=== PATIENT | female | born 2000 | race Caucasian/White ===

== ENCOUNTER 2021-09-04 17:25 | Emergency (ER) | payer OTHER, BC, SELFPAY ==
[2021-09-04 17:31] VITALS: BP 123/76; PULSE 76; RESP 18; TEMP 36.2; O2SAT 98; BMI 22.6
--- NOTE | 2021-09-04 18:04 | ED_ITS ---
HPI - General Adult General Chief complaint: Laceration/Wound Stated complaint: CUT ON NOSE - BAT INJURY Time Seen by Provider: 09/04/21 17:26 Source: patient Mode of arrival: ambulatory Limitations: no limitations History of Present Illness HPI narrative: Healthy 21-year-old female coming in today with a laceration to her nose. States she was doing a drill with a baseball bat, the baseball bat ricocheted off of a exercise band and hit her in the nose. She denies headache, blurry vision. She did not lose consciousness. She denies difficulty breathing. Patient states that her tetanus shot was updated last year. Related Data Home Medications Medication Instructions Recorded Confirmed No Known Home Medications 09/04/21 09/04/21 Allergies Allergy/AdvReac Type Severity Reaction Status Date / Time No Known Drug Allergies Allergy Verified 09/04/21 17:30 Review of Systems Status of ROS: Reports: 10 or more systems reviewed and unremarkable except as noted in History and below PFSH PFSH Social History Smoking Status: Never smoker Do you use any of these nicotine containing products: None Second hand tobacco smoke exposure: Yes How often do you have a drink containing alcohol: monthly or less How often do you have six or more drinks on one occasion: Never AUDIT-C Alcohol total score: 1 Non-prescribed substance use: denies use Exam Narrative: Exam Narrative: Well-nourished well-developed patient in no acute distress. Alert and oriented. Answers questions appropriately. Mood and affect are appropriate. Thoughts are goal oriented and rational. No tangential or magical thinking noted. Patient speaks in full sentences without needing to catch their breath. HEENT: Normocephalic. Pupils are equally round reactive to light. Extraocular muscles are intact. Conjunctivae are moist without any icterus noted. Moist mucous membranes. Posterior pharynx is normal. Neck is soft without any lymphadenopathy or thyromegaly. No masses are appreciated. Patient has a small horizontal laceration, approximately 1 cm in length right across the bridge of the nose. There is no significant swelling. There is no crepitus or tenderness to palpation of the nose. There is no septal hematoma noted. There is no bruising around the eyes. Laceration goes through the epidermis and dermis into the subcutaneous tissue, there is no bone visualized. Skin: Well perfused without any obvious rashes. Const: Vital Signs, click to edit/add: Vital Signs - 24 hr 09/04/21 17:31 Temperature 97.1 F L Pulse Rate [Right Pulse Oximeter] 76 Respiratory Rate 18 Blood Pressure [Ri ght Upper Arm] 123/76 Pulse Oximetry 98 Course Vital Signs Vital signs: Initial Vital Signs Temperature 97.1 F L 09/04/21 17:31 Temperature Source Temporal Artery Scan 09/04/21 17:31 Pulse Rate 76 09/04/21 17:31 Respiratory Rate 18 09/04/21 17:31 Blood Pressure 123/76 09/04/21 17:31 Blood Pressure Mean 91 09/04/21 17:31 Blood Pressure Position Supine 09/04/21 17:31 Pulse Oximetry 98 09/04/21 17:31 Oxygen Delivery Method 09/04/21 17:31 Vital Signs Temperature 97.1 F L 09/04/21 17:31 Pulse Rate 76 09/04/21 17:31 Respiratory Rate 18 09/04/21 17:31 Blood Pressure 123/76 09/04/21 17:31 Pulse Oximetry 98 09/04/21 17:31 Temperature 97.1 F L 09/04/21 17:31 Pulse Rate 76 09/04/21 17:31 Respiratory Rate 18 09/04/21 17:31 Blood Pressure 123/76 09/04/21 17:31 Pulse Oximetry 98 09/04/21 17:31 Medical Decision Making MDM Narrative Medical decision making narrative: Laceration to the nose sutured in the ED today. We discussed wound hygiene, signs and symptoms of infection, reasons to return to clinic, suture removal in 5-7 days, scar formation. Patient was agreeable had no other questions. Discharge Plan Discharge Clinical Impression: Laceration Patient Disposition: Home, Self-Care Condition: Improved Additional Instructions: Keep wound clean and dry. Okay to shower like you normally would but do not soak it. Suture removal in 5-7 days with your primary care provider. Watch for signs of infection which include redness or drainage from the laceration. See your doctor right away if this occurs. Scarring will be present, once sutures are removed make sure to use daily sunscreen as this will help with the appearance of the small scar. Prescriptions: No Action No Known Home Medications 0RF Follow Up/Referrals: Beth Levy MD [Primary Care Provider] - Stand Alone Forms: [email or web address] Info Instructions Procedures Laceration Laceration 1: Verification/time out: correct patient and correct site Site: face (Nose) Size (cm): 1 (cm) Description: linear Depth: simple, single layer Local Anesthetic: lidocaine 1% Amount of anesthesia used (mL): 1 (cc) Pre-repair: wound explored and irrigated extensively Skin layer closed with: other (Ethilon) Size (cm): 5-0 Number of sutures: 3 Technique: simple, interrupted Conclusion: patient tolerated procedure
== END 2021-09-04 18:28 | disposition home or self-care (01) ==
LOC: ED 18:15
PROVIDERS: Emergency Provider Family Medicine; PCP Family Medicine
DX: S01.21XA Laceration without foreign body of nose, initial encounter (principal); W20.8XXA Other cause of strike by thrown, projected or falling object, initial encounter; Y93.B9 Activity, other involving muscle strengthening exercises
CPT/HCPCS: 12011; 99282; 99283

== ENCOUNTER 2022-03-12 07:46 | Outpatient (CLI) | payer BC, SELFPAY ==
--- NOTE | 2022-03-12 08:15 | CRLHL7_ITS ---
For Patients: As a result of the Century Cures Act, medical imaging exams and procedure reports are released immediately into your electronic medical record. You may view this report before your referring provider. If you have questions, please contact your health care provider. Indication: Rt hip impingement syndrome Procedure : Informed consent was obtained. The site was marked. Time-out was performed. The skin of the right hip was cleansed with ChloraPrep. A sterile drape was placed. 8 cc of 1 percent lidocaine was administered for superficial anesthesia. Subsequently a 22 gauge spinal needle was introduced into the right hip joint under intermittent fluoroscopic guidance. Injection of 2 cc nonionic Omnipaque 240 contrast confirmed intra-articular location. Subsequently 11 cc of dilute gadolinium were injected. The needle was removed and hemostasis achieved with direct pressure. A dressing was placed. The patient tolerated the procedure well without immediate complication and was immediately sent to MRI for imaging. Total fluoroscopy time 33 seconds. Impression: Successful fluoroscopically guided right hip arthrogram for MRI. Dictated by Nate Morales MD @ 03/12/2022 9:29:32 AM (Electronically Signed)
--- NOTE | 2022-03-12 09:15 | MR_ITS ---
[address] [address] Phone:?[phone] Fax:?[phone] Referring Physician Information: Wesley Edmonds M.D. [address] [facility] [address] Phone:?[phone] Fax:?[phone] Patient:Mayte Fink D.O.B:?2000 Sex:?Female Phone:?[phone] [facility] MRN:?[id number] Exam Date:?03/12/2022 ? EXAM: MR ARTHROGRAM of the RIGHT HIP CLINICAL INFORMATION: Female, 21 years old, with right hip pain. INDICATION: Evaluate for hip impingement. PRIOR SURGERY: None reported. PLAIN FILMS: None available. COMPARISONS: No prior MRIs available. TECHNICAL INFORMATION: Exam performed after injection of gadolinium-based contrast into the right hip joint, reported separately. Using a 1.5T MR scanner: coronals: PD, T2, T1FS sagittals: PD, T2, T1FS axial obliques: PD axials: PDFS coronals of pelvis: T1, STIR SEDATION: None. CONTRAST: No intravenous contrast was administered. FINDINGS: Hip joint: Gadolinium-based contrast distends the hip joint, reflecting successful arthrography. No chondromalacia or focal full-thickness defect of the femoral head or acetabular articular cartilage. No intra-articular bodies. Labrum: Approximately 3.2 cm longitudinal linear tear of base of the anterior through superior labrum (oblique axial series 8 images 12-18; coronal series 4 images 10-14). No paralabral cyst. Proximal femur: No femoral occult fracture, stress injury, marrow edema or osteonecrosis. Loss of normal femoral head/neck junction offset with mild anterosuperior femoral cam morphology. No fibrocystic change. Based on oblique axial series 8 image 15 at approximately 1:30 o'clock anterosuperiorly, the maximum femoral alpha angle measures approximately 68?. Acetabulum: No subchondral cysts, periacetabular ossicles or marrow edema. Version: There appears decreased cranial acetabular anteversion without convincing retroversion. Coverage: Right lateral center edge (CE) angle measures approximately 31? (normal 25?-39?), midline coronal series 6 image 18, corrected for pelvic obliquity. Ligamentum teres: Ligamentum teres is intact and unremarkable. Iliofemoral ligament: The iliofemoral ligament is intact without thickening. Pelvis osseous structures: Sacrum: No stress/insufficiency fractures or marrow edema/pathology. Sacroiliac joints: No demonstrable sacroiliitis. Pubic rami: No stress/insufficiency fractures or marrow edema/pathology. Symphysis pubis: No ongoing osteitis pubis. Myotendinous structures: Gluteus abductors: No convincing insertional tendinopathy or tear of gluteus minimus or medius. Adductors: No demonstrable tendinopathy or strain/tear. Hamstrings: Intact semimembranosus, semitendinosus and biceps femoris tendons, without tendinopathy or tear. Flexors: Intact iliopsoas and rectus femoris, without strain/tear. External rotators: Intact, without demonstrable ischiofemoral impingement. Gluteal aponeurotic fascia and IT band: Unremarkable. Bursae: No demonstrable trochanteric, iliopsoas, or iliopectineal bursitis. Intrapelvic contents: Free fluid: No free fluid seen within the pelvis. Pelvic viscera: No discrete intrapelvic mass is identified. Lymph nodes: No lymphadenopathy by MRI size criteria. Neurovascular structures: No discrete cyst, mass or other compression upon the portions visualized of sciatic or femoral nerves. Lumbar spine:?The visualized portions of the lower lumbar spine are unremarkable. IMPRESSION: 1. Longitudinal linear tearing of the anterior through superior labrum measuring 3.2 cm. No paralabral cyst. 2. Mild anterosuperior femoral cam morphology, which may predispose to femoroacetabular impingement (JES). 3. Decreased acetabular anteversion, which may predispose to a pincer mechanism of JES. However, the right hip volume is normal. 4. No myotendinous abnormality. 5. No full-thickness chondral defect or evidence of hip joint osteoarthritis. 6. No fracture or osseous stress reaction. BC Electronically signed on 03/12/2022 1:03:00 PM by Marty Samson M.D.
== END 2022-03-12 07:47 | disposition home or self-care (01) ==
PROVIDERS: PCP Family Medicine; Visit Provider Family Medicine
DX: M25.551 Pain in right hip (principal); S43.431A Superior glenoid labrum lesion of right shoulder, initial encounter
CPT/HCPCS: 73525; 73722; 77002; A9575; Q9966

== ENCOUNTER 2024-01-14 22:13 | Emergency (ER) | payer BC, SELFPAY ==
[2024-01-14 22:17] VITALS: BP 147/90; PULSE 83; RESP 18; TEMP 36.2; O2SAT 100; BMI 25.8
[2024-01-14 22:44] VITALS: BP 144/80; BP 150/91; BP 152/80; PULSE 101; PULSE 88; PULSE 99
--- NOTE | 2024-01-14 22:49 | ED_ITS ---
HPI - General Adult General Date Seen: 01/14/24 Chief complaint: Weakness Stated complaint: Faint, shaky Time Seen by Provider: 01/14/24 22:23 Source: patient Mode of arrival: ambulatory Limitations: no limitations History of Present Illness HPI narrative: Patient is a 23-year-old young woman, here with mom for evaluation of some weakness and lightheadedness that she has noted over the past couple of weeks. 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 She notes that she probably does not drink as much as she should during her shifts, but she does not find particularly stressful. She will find that when she stands up she feels lightheaded, that her body feels kind of weak. She does think she is eating enough during her shifts. Today she has had a twitching sensation in her anterior chest, no chest pain or tightness. No actual syncope. She has not had abdominal pain, vomiting diarrhea black or bloody stools urinary symptoms. No suspicion of . No fevers or chills. No cough or shortness of breath. She drinks partial energy drinks, she says she never finishes the whole thing. No tobacco or alcohol use. Related Data Home Medications ?Medication ?Instructions ?Recorded ?Confirmed No Known Home Medications 09/04/21 01/14/24 Allergies Allergy/AdvReac Type Severity Reaction Status Date / Time No Known Drug Allergies Allergy Verified 01/14/24 22:20 Review of Systems Status of ROS: Reports: 10 or more systems reviewed and unremarkable except as noted in History and below PFSH PFS Social History Smoking Status: Never smoker Do you use any of these nicotine containing products: None Second hand tobacco smoke exposure: Yes How often do you have a drink containing alcohol: monthly or less How often do you have six or more drinks on one occasion: Never AUDIT-C Alcohol total score: 1 Non-prescribed substance use: denies use Exam Narrative: Exam Narrative: Vital signs reviewed In general, alert, nontoxic young woman. Head: Normocephalic, atraumatic. Eyes: Sclera clear. Pupils equal and reactive. ENT: Mucous membranes moist. Neck: Supple without adenopathy. Heart: Regular rate and rhythm without murmur. Lungs: Clear. No increased work of breathing, crackles or wheezes. Abdomen: Soft, nontender to palpation. Extremities: Well perfused, pulses intact. No significant edema. Neurologic: Alert, conversant. Speech fluent, face symmetric. Moves all ext remities equally. Skin: Warm, dry well perfused. Affect: Normal. Const: Vital Signs, click to edit/add: Vital Signs - 24 hr 01/14/24 22:17 01/14/24 22:44 Temperature 97.2 F L Pulse Rate [Pulse Oximeter] 83 Pulse Rate [orthos tatic lying] 88 Pulse Rate [orthos tatic sitting] 99 Pulse Rate [orthos tatic standing] 101 H Respiratory Rate 18 Blood Pressure [Ri ght Upper Arm] 147/90 H Blood Pressure [or thostatic lying] 150/91 H Blood Pressure [or thostatic sitting] 152/80 H Blood Pressure [or thostatic standing ] 144/80 H Pulse Oximetry 100 Oxygen Delivery Me thod Room Air Documenting provider has reviewed patient's vital signs: yes Course Course ED Course: Following initial evaluation, an EKG was done which by my review shows a normal sinus rhythm, ventricular rate of 84. No acute ST segment changes. Normal HI interval, normal corrected QT. unremarkable T-waves. Orthostatic vital signs show an increase in her pulse from 83-101, blood pressure is stable. She would be interested in trying some IV fluids to see if she feels improved. I checked basic labs, her white blood cell count is 5, hemoglobin is 14.4, fairly unremarkable diff. metabolic panel is normal, potassium is 3.7, calcium 9.8. TSH is pending. Urinalysis is negative, 0-2 red cells 0-2 white cells, no ketones. Blood sugar is normal. Discussed that at this point difficult to know why she might be feeling these symptoms, the fact that it is at the end of 12 hour shift suggest there may be a fatigue component, stress, caffeine, sleep, all of these things may be contributing. However, discussed that she should follow-up with her primary doctor, if things are progressive or new symptoms develop she may need additional evaluation. She says she has an appointment with her doctor tomorrow. Vital Signs Vital signs: Initial Vital Signs Temperature 97.2 F L 01/14/24 22:17 Temperature Source Temporal Artery Scan 01/14/24 22:17 Pulse Rate 83 01/14/24 22:17 Respiratory Rate 18 01/14/24 22:17 Blood Pressure 147/90 H 01/14/24 22:17 Blood Pressure Mean 109 H 01/14/24 22:17 Blood Pressure Position Sitting 01/14/24 22:17 Pulse Oximetry 100 01/14/24 22:17 Oxygen Delivery Method Room Air 01/14/24 22:17 Vital Signs Temperature 97.2 F L 01/14/24 22:17 Pulse Rate 83 01/14/24 22:17 Respiratory Rate 18 01/14/24 22:17 Blood Pressure 147/90 H 01/14/24 22:17 Pulse Oximetry 100 01/14/24 22:17 Oxygen Delivery Method Room Air 01/14/24 22:17 Temperature 97.2 F L 01/14/24 22:17 Pulse Rate 68 01/15/24 00:30 Respiratory Rate 18 01/15/24 00:00 Blood Pressure 111/66 01/15/24 00:30 Pulse Oximetry 95 01/15/24 00:30 Oxygen Delivery Method Room Air 01/15/24 00:30 Medications Administered Medications: Discontinued Medications Generic Name Dose Route Start Last Admin Trade Name Freq PRN Reason Stop Dose Admin Sodium Chloride 1,000 mls @ 1,000 mls/hr 01/14/24 23:00 01/15/24 00:30 0.9 % Sodium Chloride 1000 Ml IV 01/14/24 23:59 Infused .Q1H YENY Infusion Medical Decision Making Lab Data Labs: Lab Results 01/14/24 01/14/24 01/14/24 Range/Units 22:45 22:50 23:33 WBC 5.17 (4.50-11.00) K/uL RBC 4.68 (4.00-5.20) m/uL Hgb 14.4 (12.0-16.0) gm/dL Hct 43.1 (33.0-51.0) % MCV 92 (80-100) fL MCH 31 (26-34) pg MCHC 33 (32-36) gm/dL RDW Coeff of Alejandro 10.7 L (11.5-15.5) % Plt Count 196 (140-440) K/uL Neut % (Auto) 41.7 L (42.0-72.0) % Lymph % (Auto) 46.6 H (20-44) % Warren % (Auto) 10.1 (0.0-11.0) % Eos % (Auto) 1.0 (0.0-7.0) % Baso % (Auto) 0.2 (0.0-3.0) % Neut # (Auto) 2.20 (1.7-7.0) K/uL Lymph # (Auto) 2.40 (0.90-2.90) K/uL Warren # (Auto) 0.50 (0.00-0.90) K/UL Eos # (Auto) 0.05 (0.00-0.50) K/uL Baso # (Auto) 0.01 (0.00-0.30) K/uL Abs Immat Gran (auto) 0.02 (0.00-0.30) K/uL Imm/Tot Granulo (auto) 0.4 % Sodium 138 (135-149) mmol/L Potassium 3.7 (3.6-5.1) mmol/L Chloride 103 (96-114) mmol/L Carbon Dioxide 26 (20-32) mmol/L Anion Gap 9 (7-15) mEq/L BUN 22 (5-24) mg/dL Creatinine 0.6 (0.5-1.5) mg/dL Estimated Creat Clear 137.68 Estimated GFR 130 ml/min Glucose 115 (60-115) mg/dL Calcium 9.8 (8.4-10.6) mg/dL TSH 5.480 H (0.270-4.200) uIU/mL Free T4 1.00 (0.70-1.85) ng/dL Urine Color Yellow (Yellow) Urine Appearance Clear (Clear) Urine pH 7.0 (5.0-8.5) Ur Specific [place] 1.015 (1.000-1.030) Urine Protein Negative (Negative) Urine Glucose (UA) Negative (Negative) Urine Ketones Negative (Negative) Urine Blood Negative (Negative) Urine Nitrite Negative (Negative) Urine Bilirubin Negative (Negative) Urine Urobilinogen 0.2 (0.2-1.0) Ur Leukocyte Esterase Negative (Negative) Urine RBC 0-2 (0-2) Urine WBC 0-2 (0-5) Ur Squamous Epith Cells None (None-Few) Urine Bacteria None (None) Urine HCG, Qual Negative (Negative) Discharge Plan Discharge Clinical Impression: Episodic lightheadedness Patient Disposition: Home, Self-Care Condition: Stable Instructions: Lightheadedness (ED) Additional Instructions: Follow-up with primary care as planned. Return any time for significant worsening, focal weakness, severe pain, etc. Prescriptions: No Action No Known Home Medications Follow Up/Referrals: Beth Levy MD [Primary Care Provider] - Stand Alone Forms: [employer] Info Instructions
[2024-01-14 22:55] LABS: Appearance Urine Clear (Clear); Bilirubin Urine Negative (Negative); Blood Urine Negative (Negative); Color Urine Yellow (Yellow); Glucose Urine Negative (Negative); Ketones Urine Negative (Negative); Leukocyte Esterase Urine Negative (Negative); Nitrite Urine Negative (Negative); Protein Urine Negative (Negative); Specific Gravity Urine 1.015 (1.000-1.030); Urobilinogen Urine 0.2 (0.2-1.0)
[2024-01-14 22:56] LABS: Basophils Absolute Auto 0.01 K/uL (0.00-0.30); Basophils Percent Auto 0.2 % (0.0-3.0); Eosinophils Absolute Auto 0.05 K/uL (0.00-0.50); Hematocrit 43.1 % (33.0-51.0); Hemoglobin* 14.4 gm/dL (12.0-16.0); Immature Granulocytes Abs Auto 0.02 K/uL (0.00-0.30); Immature Granulocytes Pct Auto 0.4 %; Lymphocytes Percent Auto 46.6 % (20-44); Mean Corpuscular HGB Conc 33 gm/dL (32-36); Mean Corpuscular Hemoglobin 31 pg (26-34); Mean Corpuscular Volume 92 fL (80-100); Monocytes Percent Auto 10.1 % (0.0-11.0); Neutrophils Percent Auto 41.7 % (42.0-72.0); Platelet Count* 196 K/uL (140-440); RDW Coefficient of Variation % 10.7 % (11.5-15.5); Red Blood Count 4.68 m/uL (4.00-5.20); White Blood Count* 5.17 K/uL (4.50-11.00)
[2024-01-14 23:01] LABS: RBC Urine 0-2 (0-2); Ur HCG Qualitative* Negative (Negative); WBC Urine 0-2 (0-5)
[2024-01-14 23:02] LABS: Slide Review Reflex No
[2024-01-14 23:06] LABS: Chloride* 103 mmol/L (96-114); Potassium* 3.7 mmol/L (3.6-5.1); Sodium* 138 mmol/L (135-149)
[2024-01-14 23:09] LABS: Anion Gap 9 mEq/L (7-15); Blood Urea Nitrogen* 22 mg/dL (5-24); Carbon Dioxide* 26 mmol/L (20-32); Creatinine* 0.6 mg/dL (0.5-1.5); Est. Creatinine Clearance* 137.68; Estimated Glomerular Filt Rate 130 ml/min; Glucose* 115 mg/dL (60-115)
[2024-01-14 23:10] LABS: Calcium* 9.8 mg/dL (8.4-10.6)
[2024-01-14] MEDS: 0.9 % SODIUM CHLORIDE 1000 ml 1,000 ML IV (23:21)
[2024-01-14 23:30] VITALS: BP 117/72; PULSE 70; RESP 18; O2SAT 97
[2024-01-15] VITALS: BP 109/67; PULSE 72; RESP 18; O2SAT 97
[2024-01-15 00:30] VITALS: BP 111/66; PULSE 68; O2SAT 95
== END 2024-01-15 00:43 | disposition home or self-care (01) ==
PROVIDERS: Emergency Provider Emergency Medicine; PCP Family Medicine
DX: R42 Dizziness and giddiness (principal)
CPT/HCPCS: 36415; 80048; 81001; 81025; 84439; 84443; 85025; 93005; 96360; 99284; J7030